=== PATIENT | male | born 1955 | race Caucasian/White ===

== ENCOUNTER 2017-04-07 08:33 | Outpatient (CLI) | payer OTHER ==
--- NOTE | 2017-04-07 10:10 | XRAY Report ---
FOUR-VIEW RIGHT KNEE: 04/07/2017 CLINICAL INDICATION: Pain. FINDINGS: AP, bilateral oblique, lateral views of the right knee demonstrate mild osteoarthritis, wi th small osteophytes on the patella. There is no evidence of acute fracture or dislocation. No effu ebony is present. IMPRESSION: MILD OSTEOARTHRITIS. JOB #: [id number] EXT JOB #:[id number]
== END 2017-04-07 08:34 | disposition home or self-care (01) ==
LOC: DI.S 08:33
PROVIDERS: ATTEND Physician Assistant Medical
DX: M17.11 Unilateral primary osteoarthritis, right knee (principal)

== ENCOUNTER 2017-07-27 08:00 | Outpatient (CLI) | payer OTHER ==
[2017-07-27 17:58] LABS: BASOPHILS % (AUTO) 0.4 %; EOSINOPHILS # (AUTO) 0.1 10^3/uL (0.0-0.7); EOSINOPHILS % (AUTO) 3.4 %; HGB - HEMOGLOBIN 13.4 g/dL (14.0-18.0); LYMPHOCYTES # (AUTO) 1.2 10^3/uL (1.5-3.5); LYMPHOCYTES % (AUTO) 34.8 %; MEAN CORPUSCULAR HEMOGLOBIN 31.8 pg (27.0-31.0); MEAN CORPUSCULAR HGB CONC 33.2 g/dL (32.0-36.0); MEAN CORPUSCULAR VOLUME 95.8 fL (80.0-94.0); MEAN PLATELET VOLUME 8.3 fL (7.4-11.4); MONOCYTES # (AUTO) 0.4 10^3/uL (0.0-1.0); MONOCYTES % (AUTO) 10.6 %; NEUTROPHILS # (AUTO) 1.8 10^3/uL (1.5-6.6); NEUTROPHILS % (AUTO) 50.8 %; PLT - PLATELET COUNT 188 10^3/uL (130-450); RED BLOOD COUNT 4.22 10^6/uL (4.70-6.10); RED CELL DISTRIBUTION WIDTH 13.2 % (12.0-15.0); WHITE BLOOD COUNT 3.5 x10^3/uL (4.8-10.8)
[2017-07-27 18:17] LABS: ALBUMIN 4.1 g/dL (3.2-5.5); BILIRUBIN,TOTAL 0.7 mg/dL (0.2-1.0); CREATININE 0.7 mg/dL (0.6-1.2); TOTAL PROTEIN 6.2 g/dL (6.7-8.2)
== END 2017-07-27 08:01 | disposition home or self-care (01) ==
LOC: LAB.S 08:00
PROVIDERS: ATTEND Family Medicine
DX: Z00.00 Encounter for general adult medical examination without abnormal findings (principal); D53.9 Nutritional anemia, unspecified; C61 Malignant neoplasm of prostate
CPT/HCPCS: 36415; 80053; 80061; 82306; 83721; 84153; 85025

== ENCOUNTER 2018-07-05 14:29 | Outpatient (CLI) | payer OTHER ==
[2018-07-05 18:38] LABS: BASOPHILS % (AUTO) 0.6 %; EOSINOPHILS # (AUTO) 0.1 10^3/uL (0.0-0.7); EOSINOPHILS % (AUTO) 2.2 %; HGB - HEMOGLOBIN 13.2 g/dL (14.0-18.0); LYMPHOCYTES # (AUTO) 1.2 10^3/uL (1.5-3.5); LYMPHOCYTES % (AUTO) 31.3 %; MEAN CORPUSCULAR HEMOGLOBIN 32.7 pg (27.0-31.0); MEAN CORPUSCULAR HGB CONC 34.1 g/dL (32.0-36.0); MEAN CORPUSCULAR VOLUME 96.1 fL (80.0-94.0); MEAN PLATELET VOLUME 7.8 fL (7.4-11.4); MEAN RETIC VALUE 111.8; MONOCYTES # (AUTO) 0.4 10^3/uL (0.0-1.0); MONOCYTES % (AUTO) 11.1 %; NEUTROPHILS # (AUTO) 2.2 10^3/uL (1.5-6.6); NEUTROPHILS % (AUTO) 54.8 %; PLT - PLATELET COUNT 201 10^3/uL (130-450); RED BLOOD COUNT 4.02 10^6/uL (4.70-6.10); RED CELL DISTRIBUTION WIDTH 12.8 % (12.0-15.0); WHITE BLOOD COUNT 3.9 x10^3/uL (4.8-10.8)
[2018-07-05 18:53] LABS: PSA FREE < 0.005 ng/mL (0.16-2.81); PSA TOTAL < 0.008 ng/mL (0.000-2.000)
[2018-07-05 18:55] LABS: THYROID STIMULATING HORMONE 1.67 uIU/mL (0.34-5.60)
[2018-07-05 18:57] LABS: FREE T4 (FREE THYROXINE) 0.79 ng/dL (0.58-1.64)
[2018-07-05 19:02] LABS: FERRITIN 36.4 ng/mL (23.9-336.2)
[2018-07-05 19:22] LABS: LUTEINIZING HORMONE 7.11 mIU/mL
[2018-07-05 19:25] LABS: ALBUMIN/GLOBULIN RATIO 1.8 (1.0-2.2); BILIRUBIN,TOTAL 0.8 mg/dL (0.2-1.0); CALCIUM 9.1 mg/dL (8.5-10.3); CREATININE 0.6 mg/dL (0.6-1.2); TOTAL PROTEIN 6.2 g/dL (6.7-8.2)
== END 2018-07-05 14:30 | disposition home or self-care (01) ==
LOC: LAB.F 14:29
PROVIDERS: ATTEND Internal Medicine
DX: D61.818 Other pancytopenia (principal); Z85.46 Personal history of malignant neoplasm of prostate; R53.83 Other fatigue
CPT/HCPCS: 36415; 80053; 81599; 82607; 82728; 82746; 83002; 83540; 83615; 84153; 84154; 84439; 84443; 84466; 85025; 85044

== ENCOUNTER 2020-07-31 11:35 | Outpatient (CLI) | payer OTHER ==
[2020-07-31 15:56] LABS: PSA TOTAL 0.007 ng/mL (0.000-2.000)
== END 2020-07-31 11:36 | disposition home or self-care (01) ==
LOC: LAB.S 11:35
PROVIDERS: ATTEND Family Medicine
DX: C61 Malignant neoplasm of prostate (principal)
CPT/HCPCS: 36415; 84153

== ENCOUNTER 2021-04-30 09:50 | Outpatient (CLI) | payer OTHER ==
--- NOTE | 2021-04-30 17:16 | XRAY Report ---
PROCEDURE: Hand 3 View RT INDICATIONS: PAIN IN RIGHT FINGERS TECHNIQUE: 3 views of the hand(s) acquired. COMPARISON: None FINDINGS: Bones: No fractures or dislocations. No suspicious bony lesions. Moderate first MCP joint osteoarth ritis. Soft tissues: No suspicious soft tissue calcifications. IMPRESSION: Moderate first MCP joint osteoarthritis. No fracture. No acute osseous lesion. If there are persistent symptoms or continued clinical concern for pathology, then advanced imaging (CT, MR, bone scan) should be considered for further evaluation . Reviewed by: Kira Rodriguez MD, PhD on 04/30/2021 5:15 PM PST Approved by: Kira Rodriguez MD, PhD on 04/30/2021 5:15 PM [facility] Station ID: [id number]
== END 2021-04-30 09:51 | disposition home or self-care (01) ==
LOC: DI.S 09:50
PROVIDERS: ATTEND Nurse Practitioner Family
DX: M19.041 Primary osteoarthritis, right hand (principal)

== ENCOUNTER 2023-12-09 08:20 | Outpatient (CLI) | payer MEDICARE, BC ==
--- NOTE | 2023-12-09 10:44 | Ultrasound Report ---
PROCEDURE: Abdomen Complete INDICATIONS: LLQ ABD PAIN TECHNIQUE: Real-time scanning was performed of the abdominal and retroperitoneal organs, with image documentatio n. COMPARISON: None. FINDINGS: Liver: Liver is normal in size and homogeneous in echotexture. Gallbladder: No gallstones, sludge, wall thickening or pericholecystic edema. Biliary ducts: Intrahepatic bile ducts are non-dilated. Extrahepatic bile duct caliber measures 7 m m. Normal is 6-7 mm or less in diameter, or 10 mm or less post-cholecystectomy. Pancreas: Visualized portions of the pancreas are sonographically normal. Spleen: Spleen is normal in size and homogeneous in echotexture. Kidneys: Kidneys are normal in size and echotexture. Right kidney measures 11.5 cm long; left kidne y measures 9.3 cm long. No hydronephrosis or nephrolithiasis. No solid masses. No complex renal cys tic lesions which require follow-up. Left renal simple cyst measuring 1.4 cm. Aorta: Visualized aorta is normal in caliber at less than 3 cm. Iliacs: Proximal common iliac arteries are normal in caliber at less than 2.5 cm. IVC: Intrahepatic inferior vena cava is patent. Miscellaneous: No free abdominal fluid. IMPRESSION: No cause for patient's symptoms is identified. Normal abdominal ultrasound. Reviewed by: Jeramy Moreno MD on 12/09/2023 10:43 AM PDT Approved by: Jeramy Moreno MD on 12/09/2023 10:43 AM PDT Station ID: [id number]
--- NOTE | 2023-12-09 10:45 | Ultrasound Report ---
PROCEDURE: Pelvic Limited INDICATIONS: LLQ ABD PAIN TECHNIQUE: Real-time transabdominal scanning was performed of the left lower quadrant, area of concern, with adi ge documentation. COMPARISON: None. FINDINGS: No abnormalities seen within the area of pain in the left lower quadrant. IMPRESSION: No abnormalities are seen within the area of pain in the left lower quadrant. Reviewed by: Jeramy Moreno MD on 12/09/2023 10:44 AM PDT Approved by: Jeramy Moreno MD on 12/09/2023 10:44 AM PDT Station ID: [id number]
== END 2023-12-09 08:21 | disposition home or self-care (01) ==
LOC: DI 08:20
PROVIDERS: ATTEND Nurse Practitioner Family
DX: R10.32 Left lower quadrant pain (principal)